=== PATIENT | male | born 1990 | race American Indian/Alaskan Native ===

== ENCOUNTER 2017-04-11 14:12 | Emergency (ER) | payer OTHER ==
[2017-04-11 14:47] VITALS: O2SAT 99
--- NOTE | 2017-04-11 16:15 | C.PDOC ---
Time Seen by Provider: 04/11/17 15:32 Chief Complaint (Nursing): ENT Problem History Per: Patient Onset/Duration Of Symptoms: Days (1) Current Symptoms Are (Timing): Still Present Associated Symptoms: Sore Throat Severity: Moderate Additional History Per: Prior Records Past Medical History Reviewed: Historical Data, Nursing Documentation, Vital Signs Vital Signs: Last Vital Signs Temp 98.2 F 04/11/17 14:43 Pulse 71 04/11/17 14:43 Resp 14 04/11/17 14:43 BP 120/82 04/11/17 14:43 Pulse Ox 99 04/11/17 14:43 - Medical History PMH: Asthma - [facility] Procedures APPLICATION OF SPLINT (07/24/14) Family History: States: Unknown Family Hx - Social History Hx Tobacco Use: Yes Hx Alcohol Use: No Hx Substance Use: No - Immunization History Hx Tetanus Toxoid Vaccination: No Hx Influenza Vaccination: No Hx Pneumococcal Vaccination: No Review Of Systems Except As Marked, All Systems Reviewed And Found Negative. Constitutional: Negative for: Fever ENT: Positive for: Throat Pain. Negative for: Ear Pain, Nose Congestion Cardiovascular: Negative for: Chest Pain Respiratory: Positive for: Cough (mild). Negative for: Shortness of Breath Gastrointestinal: Negative for: Vomiting, Abdominal Pain Musculoskeletal: Negative for: Neck Pain Skin: Negative for: Rash Neurological: Positive for: Headache. Negative for: Weakness, Numbness Physical Exam - Physical Exam Appears: Non-toxic, No Acute Distress Skin: Normal Color, Warm, Dry, No Rash Head: Atraumatic, Normacephalic Eye(s): bilateral: Normal Inspection, PERRL, EOMI Oral Mucosa: Moist, No Drooling, No Trismus Throat: Erythema, No Exudate, No Drooling, No Mass Neck: Normal ROM, Supple Lymphatic: No Adenopathy Cardiovascular: Rhythm Regular Respiratory: Normal Breath Sounds, No Accessory Muscle Use Gastrointestinal/Abdominal: Soft, No Tenderness Extremity: Normal ROM Neurological/Psych: Oriented x3, Normal Speech, Normal Motor, Normal Sensation ED Course And Treatment O2 Sat by Pulse Oximetry: 99 Pulse Ox Interpretation: Normal Disposition Counseled Patient/Family Regarding: Studies Performed, Diagnosis, Need For Followup, Rx Given, Smoking Cessation - Disposition Referrals: [facility] [Outside] Disposition: HOME/ ROUTINE Disposition Time: 16:14 Condition: STABLE Additional Instructions: Follow up in the clinic. Return to the ER if you develop high fever, trouble breathing or swallowing, worsening of symptoms or if you have any other concerns. Prescriptions: Naproxen [Naprosyn] 1 tab PO BID PRN #20 tab PRN Reason: Pain Instructions: Pharyngitis (ED) Forms: General Discharge Instructions - Clinical Impression Clinical Impression: Viral pharyngitis
[2017-04-11 16:25] VITALS: BP 116/78; PULSE 68; RESP 16; TEMP 98.4
== END 2017-04-11 16:23 | disposition home or self-care (01) ==
LOC: C.ER 14:12
DX: J02.8 Acute pharyngitis due to other specified organisms (principal)

== ENCOUNTER 2018-06-03 09:38 | Emergency (ER) | payer MEDICAID ==
[2018-06-03 10:15] VITALS: RESP 18; O2SAT 98
--- NOTE | 2018-06-03 12:18 | C.PDOC ---
History Of Present Illness 27 year old male presents to the ED for evaluation of an itchy rash which began 4 days ago and has been progressively worsening. Patient states the rash initially started on his feet and has now progressed to his legs, torso and arms. Patient tried applying [id number] rash cream to the area without relief. He denies shortness of breath, cough, throat swelling/closing sensation, recent changes in diet, or use of new soaps/lotions. Chief Complaint (Nursing): Abnormal Skin Integrity History Per: Patient History/Exam Limitations: no limitations Onset/Duration Of Symptoms: Days Current Symptoms Are (Timing): Worse Quality Of Symptoms: Itching Additional History Per: Patient Past Medical History Reviewed: Historical Data, Nursing Documentation, Vital Signs Vital Signs: Last Vital Signs Temp 98.6 F 06/03/18 10:12 Pulse 65 06/03/18 10:12 Resp 18 06/03/18 10:12 BP 142/78 06/03/18 10:12 Pulse Ox 98 06/03/18 10:12 - Medical History PMH: Asthma Surgical History: No Surg Hx - [facility] Procedures APPLICATION OF SPLINT (07/24/14) Family History: States: Unknown Family Hx - Social History Hx Tobacco Use: Yes Hx Alcohol Use: No Hx Substance Use: No - Immunization History Hx Tetanus Toxoid Vaccination: No Hx Influenza Vaccination: No Hx Pneumococcal Vaccination: No Review Of Systems Constitutional: Negative for: Fever, Chills Eyes: Negative for: Conjunctivae Inflammation ENT: Negative for: Throat Pain, Throat Swelling Cardiovascular: Negative for: Palpitations Respiratory: Negative for: Cough, Shortness of Breath Gastrointestinal: Negative for: Nausea, Vomiting, Abdominal Pain Skin: Positive for: Rash (itchy) Physical Exam - Physical Exam Appears: Non-toxic, No Acute Distress Skin: Rash (diffuse macular, erythematous and pruritic rash to bilateral arms, legs, feet and torso. facial sparing. ) Head: Atraumatic, Normacephalic Eye(s): bilateral: Normal Inspection Oral Mucosa: Moist Tongue: Normal Appearing, No Swelling Lips: Normal Appearing, No Swelling Throat: Normal, No Erythema, No Exudate Neck: Supple Chest: Symmetrical, No Deformity, No Tenderness Cardiovascular: Rhythm Regular, No Murmur Respiratory: Normal Breath Sounds, No Rales, No Rhonchi, No Wheezing Extremity: Normal ROM, Capillary Refill (less than 2 seconds ) Neurological/Psych: Oriented x3, Normal Speech, Normal Cognition ED Course And Treatment O2 Sat by Pulse Oximetry: 98 (on RA) Pulse Ox Interpretation: Normal Medical Decision Making Medical Decision Making: Progress: Patient given Pepcid, Benadryl, and Decadron in the ED Patient reassessed; notes some improvement Patient is stable for discharge Disposition Counseled Patient/Family Regarding: Diagnosis, Need For Followup, Rx Given - Disposition Referrals: Sandro Santana DO [Doctor Osteopathy] - Alex Kirk MD [Staff Provider] - Becca Serrano PA [Physician [employer]arer] - Bennie Holder MD [Medical Doctor] - Martín Worthington MD [Non-Staff] - Ezra Abad MD [Medical Doctor] - Bennett Fernandez MD [Medical Doctor] - Disposition: HOME/ ROUTINE Disposition Time: 12:23 Condition: IMPROVED Additional Instructions: Follow up with Derm in 1-2 days Continue Benadryl, Pepcid and Prednisone as instructed Return to ED if symptoms worsens Prescriptions: DiphenhydrAMINE [Benadryl] 25 mg PO BID #14 cap Famotidine [Pepcid] 20 mg PO DAILY #14 tab predniSONE [predniSONE Tab] 60 mg PO DAILY #15 tab Instructions: Contact Dermatitis (DC) Forms: [facility] (Sami), Work Excuse - Clinical Impression Clinical Impression: Allergic dermatitis - 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 - Scribe Statement The provider has reviewed the documentation as recorded by the Scribe (Sil Hyman) All medical record entries made by the Scribe were at my direction and personally dictated by me. I have reviewed the chart and agree that the record accurately reflects my personal performance of the history, physical exam, medical decision making, and the department course for this patient. I have also personally directed, reviewed, and agree with the discharge instructions and disposition.
[2018-06-03 13:11] VITALS: BP 140/70; PULSE 68; TEMP 98.5
== END 2018-06-03 12:30 | disposition home or self-care (01) ==
LOC: C.ER 09:38
DX: L23.9 Allergic contact dermatitis, unspecified cause (principal); Z72.0 Tobacco use